=== PATIENT | male | born 1960 | race Caucasian/White ===

== ENCOUNTER 2019-02-18 07:43 | Inpatient (IN) ==
[2019-02-18] MEDS ORDERED: NITROGLYCERIN TOP ONE (07:58)
--- NOTE | 2019-02-18 08:05 | PROVIDER DOCUMENTATION ---
HPI-Chest Pain - General Chief Complaint: Chest Pain Stated Complaint: CHEST PAIN Time Seen by Provider: 02/18/19 07:53 Source: patient, EMS Allergies/Adverse Reactions: Patient Allergies Allergy/AdvReac Type Severity Reaction Status Date / Time Penicillins Allergy Intermediate rash and Verified 02/18/19 12:08 sob levofloxacin [From Levaquin] Allergy Mild rash and Verified 02/18/19 12:08 itching bacitracin [From Polysporin] Allergy RASH Verified 02/18/19 12:08 polymyxin B [From Polysporin] Allergy RASH Verified 02/18/19 12:08 Home Medications: Home Medication List Medication Instructions Recorded Confirmed Last Taken Type Aspirin 325 mg PO DAILY 01/29/13 02/18/19 03/10/17 History LISINOpril [Prinivil] 20 mg PO QHS 01/29/13 02/18/19 03/10/17 History Metoprolol Succinate E.r. [Toprol 50 mg PO DAILY 01/29/13 02/18/19 03/10/17 H istory Xl] Mupirocin Ointment [Bactroban 1 applicatn TOP TID #1 tube 03/11/17 02/18/19 Unknown Rx Ointment] - History of Present Illness-CP Nature of Presenting Problem: Patient reports two episodes of indigestion last night, then one this morning, then an episode of severe substernal chest pressure that felt like his previous NH and associated with shortness of breath and sweating. States nothing exacerbated the indigestion feelings, but that nitro made the pressure feel better. He states that he currently has no symptoms. Denies any other recent chest pain or shortness of breath. Nitro Today/Relief: 0.4 mg x 1 (by ems) Prior Chest Pain/Cardiac Workup: reports: stress test (several years ago) Similar Symptoms Previously?: No Recently Seen Here or By Another Healthcare Provider: No Review of Systems - Adult - REVIEW OF SYSTEMS - ADULT Constitutional: reports: no symptoms reported Eyes: reports: no symptoms reported Ears, Nose, Mouth & Throat: reports: no symptoms reported Cardiovascular: reports: see HPI Respiratory: reports: see HPI Gastrointestinal: reports: see HPI Genitourinary: reports: no symptoms reported Musculoskeletal: reports: no symptoms reported Integumentary: reports: no symptoms reported Neurological: reports: no symptoms reported Psychiatric: reports: no symptoms reported Endocrine: reports: no symptoms reported Hematologic/Lymphatic: reports: no symptoms reported Allergic/Immunologic: reports: no symptoms reported All Other Systems: Reviewed and Negative Past History - Adult - PAST MEDICAL HISTORY-ADULT Review of Records: reports: Old Records Reviewed Cardiovascular: reports: HTN, hyperlipidemia Respiratory: reports: denies history Gastrointestinal: reports: denies history Physical Exam-General - PHYSICAL EXAM-ADULT Initial Vital Signs Reviewed: Yes - CONSTITUTIONAL General Appearance: mild distress, obese, other (diaphoretic) - EYES Eyes: PERRL/EOMI, pink conjunctivae, anisocoria - HEAD, EARS, NOSE, MOUTH & THROAT HENMT: normocephalic/atraumatic, moist mucous membranes - NECK Neck: non-tender, full range of motion, supple - RESPIRATORY Respiratory: chest non-tender, lungs clear - CARDIOVASCULAR Cardiovascular: normal peripheral pulses, regular rate, rhythm, no edema - GASTROINTESTINAL (ABDOMEN) Abdominal Exam: normal bowel sounds, non tender, soft - MUSCULOSKELETAL Back Exam: normal inspection, no CVA tenderness, no vertebral tenderness Extremity: normal range of motion, non-tender, normal inspection - SKIN Integumentary: normal color, normal turgor, diaphoresis - NEUROLOGIC Neurologic: acute coordinator II-XII nml as tested, grossly normal, no motor/sensory deficits - PSYCHIATRIC Psych/Mental Status: normal mood/affect, normal thought content, normal thought process - HEART Score HEART Score: History: Highly Suspicious HEART Score: ECG: Non-Specific Repolarization Disturbance/LBBB/PM HEART Score: Age: 45-65 Years HEART Score: Risk Factors for Atherosclerotic Disease: > or = 3 Risk Factors or History of Atherosclerotic Disease Progress - PLAN OF CARE/RESULTS Progress/Plan/Lab Results: Vital Signs - 8 hr 02/18/19 09:50 Pulse Rate 46 L Respiratory Rate 15 O2 Sat by Pulse Oximetry 98 Laboratory Results - last 24 hr 02/18/19 02/18/19 02/18/19 08:00 08:00 08:00 WBC RBC Hgb Hct MCV MCH MCHC RDW Std Deviation Plt Count MPV Immature Gran % (Auto) Neut % (Auto) Lymph % (Auto) [place] % (Auto) Eos % (Auto) Baso % (Auto) Immature Gran # (Auto) Neut # (Auto) Lymph # (Auto) [place] # (Auto) Eos # (Auto) Baso # (Auto) PT 13.5 INR 0.95 PTT (Actin FS) 29.7 Sodium 142 Potassium 4.4 Chloride 104 Carbon Dioxide 28 Anion Gap 10 BUN 11 Creatinine 1.0 Estimated GFR/1.73 m2 > 60 BUN/Creatinine Ratio 11 Glucose 116 H Calculated Osmolality 283 Calcium 8.8 Total Bilirubin 0.27 AST 14 ALT 13 Alkaline Phosphatase 94 Troponin T Wyp-Z-Xphdtwkvsrm Pept 475 H Total Protein 6.4 Albumin 4.0 Globulin 2.4 Albumin/Globulin Ratio 1.7 Lipase 46 02/18/19 02/18/19 08:00 08:00 WBC 7.08 RBC 4.72 Hgb 13.6 L Hct 41.5 L MCV 87.9 MCH 28.8 MCHC 32.8 L RDW Std Deviation 15.3 H Plt Count 165 MPV 12.0 H Immature Gran % (Auto) 0.4 Neut % (Auto) 68.9 Lymph % (Auto) 18.5 L [place] % (Auto) 7.9 Eos % (Auto) 3.0 Baso % (Auto) 1.3 H Immature Gran # (Auto) 0.03 Neut # (Auto) 4.88 Lymph # (Auto) 1.31 [place] # (Auto) 0.56 Eos # (Auto) 0.21 Baso # (Auto) 0.09 PT INR PTT (Actin FS) Sodium Potassium Chloride Carbon Dioxide Anion Gap BUN Creatinine Estimated GFR/1.73 m2 BUN/Creatinine Ratio Glucose Calculated Osmolality Calcium Total Bilirubin AST ALT Alkaline Phosphatase Troponin T 0.024 Atv-H-Infrnumxzye Pept Total Protein Albumin Globulin Albumin/Globulin Ratio Lipase Orders Category Date Time Status Admit - [facility] Routine AdmDCTranf 02/18/19 09:38 Active Activity - Strict Bedrest ORDERED Care 02/18/19 12:02 Active Nursing- MD Consult Request ROUTINE Care 02/18/19 12:02 Completed Vital Signs Order ARRIVAL TO ROOM Care 02/18/19 12:02 Active Z-Document. for Tele Applied ORDERED Care 02/18/19 12:02 Completed Physician/Provider Consults Routine Cons 02/18/19 12:02 Ordered CHEST-2 VIEWS [RAD] Stat Exams 02/18/19 07:58 Completed CBC WITH ELECTRONIC DIFF [HEME] Stat Lab 02/18/19 08:00 Completed COMPREHENSIVE METABOLIC PANEL [CHEM] Stat Lab 02/18/19 08:00 Completed LIPASE [CHEM] Stat Lab 02/18/19 08:00 Completed PRO B-NATRIURETIC PEPTIDE Stat Lab 02/18/19 08:00 Completed PROTIME WITH INR [COAG] Stat Lab 02/18/19 08:00 Completed PTT [COAG] Stat Lab 02/18/19 08:00 Completed TROPONIN T Q8HR Lab 02/18/19 16:12 Completed TROPONIN T Q8HR Lab 02/18/19 21:00 Ordered TROPONIN T Stat Lab 02/18/19 08:00 Completed Nitroglycerin Med 02/18/19 07:58 Discontinued 1 inch TOP NOW ONE Nitroglycerin Med 02/18/19 12:02 Active 1 inch TOP Q6H PRN PRN Telemetry [OM.EQ] Routine Oth 02/18/19 12:02 Active Transfer/Admit Order [TRANSFER] Routine Transfer 02/18/19 09:39 Completed Result Diagrams: 02/18/19 08:00 02/18/19 08:00 - EKG 1 Time of EKG reading by physician:: 08:00 EKG Interpretation (*Must complete 3 of following elements*): Abnormal Rate: 43 Rhythm: sinus QRS: Q Waves present ST Wave: non-specific ST changes - CONSULTS/PCP/HOSPITALIST Notification #1 *Consult/PCP/Hospitalist*: Dr. Traore Consult Disposition: Admit Departure - Departure Date of Disposition Decision: 02/18/19 Time of Disposition Decision: 09:30 DIAGNOSIS: Chest pain Disposition: ADMITTED INPATIENT 09 Certified Medical Emergency: Emergent Condition: Good - Critical Care Note This patient required my direct & personal management of CC.: No Attestation - Physician/ SHARAN Attestation Patient care was provided by Advanced Practice Provider:: No The physician spent face to face time with patient:: Yes Advanced Practice Provider documentation review:: Supervising physician onsite and consulted in the evaluation and care of this patient. The physician did have a face to face encounter with the patient.
--- NOTE | 2019-02-18 08:19 | Diag Imaging Result Doc PS360 ---
EXAM: CHEST-2 VIEWS 02/18/2019 HISTORY: cp TECHNIQUE: PA and lateral chest COMMENT: There is apparent pleural thickening posteriorly on the right; this was probably present on 07/01/2013 but is not as visible on the previous study. There is borderline cardiomegaly. No focal pulmonary opacity is present. IMPRESSION: Stable chest. Electronically signed by Luiz Zamudio 02/18/2019 8:16 AM
[2019-02-18 08:31] LABS: BASO# 0.09 X1000 (0.0-0.2); BASO% 1.3 % (0.0-0.8); EOS# 0.21 X1000 (0.0-0.7); HEMATOCRIT 41.5 % (42.0-52.0); HEMOGLOBIN 13.6 g/dL (14.0-18.0); IMM GRAN# 0.03 X1000 (0.0-0.04); IMM GRAN% 0.4 % (0.0-0.5); LYMPH# 1.31 X1000 (1.2-3.4); LYMPH% 18.5 % (20.5-51.1); MCH 28.8 PG (27-31); MCHC 32.8 g/dL (33-37); MCV 87.9 FL (81-99); MONO# 0.56 X1000 (0.11-0.59); MONO% 7.9 % (1.7-9.3); NEUT# 4.88 X1000 (1.4-6.5); NEUT% 68.9 % (42.2-75.2); PLT 165 X1000 (130-400); RBC 4.72 XMIL (4.7-6.1); RDW 15.3 % (11.5-14.5); WBC 7.08 X1000 (4.8-10.8)
[2019-02-18 08:36] LABS: INR 0.95; PROTIME 13.5 Seconds (11.0-16.0); PTT 29.7 Seconds (22.3-41.8)
[2019-02-18 08:44] LABS: AGAP 10; ALB/GLOB RATIO 1.7; ALKALINE PHOSPHATASE 94 U/L (32-122); BUN 11 mg/dL (8-22); CALCIUM 8.8 mg/dL (8.8-10.2); CHLORIDE 104 mmol/L (98-107); COSMO 283; ESTIMATED GFR > 60; GLUCOSE 116 mg/dL (70-104); GOT 14 U/L (10-34); GPT 13 U/L (10-44); LIPASE 46 U/L (13-60); POTASSIUM 4.4 mmol/L (3.5-5.1); SODIUM 142 mmol/L (136-145); TCO2 28 mmol/L (25-35); TOTAL BILIRUBIN 0.27 mg/dL (0.20-1.00); TOTAL PROTEIN 6.4 g/dL (6.3-8.3)
[2019-02-18] MEDS ORDERED: NITROGLYCERIN TOP PRN (12:02)
--- NOTE | 2019-02-18 12:30 | EKG Report ---
Test Performed on : 02/18/2019 07:57:02 AM Test Reason : ED. NO EKG ORDER FOR MUSE Blood Pressure : / mmHG Vent. Rate : 043 BPM Atrial Rate : 043 BPM P-R Int : 150 ms QRS Dur : 094 ms QT Int : 474 ms P-R-T Axes : 078 008 067 degrees QTc Int : 400 ms Marked sinus bradycardia. with premature supraventricular complexes. Incomplete right bundle branch block Inferior infarct , age undetermined Cannot rule out Anterior infarct (cited on or before 04-JUL-2010) Abnormal ECG When compared with ECG of 01-JUL-2013 13:16, premature supraventricular complexes. are now present Inferior infarct is now present Unconfirmed Result
[2019-02-18] MEDS ORDERED: HEPARIN 1000 UNITS/NS 2,000 UNIT/1,000 ML IV.SOLN ONE (13:17)
--- NOTE | 2019-02-18 13:53 | CARDIOLOGY CONSULTATION ---
DATE: 02/18/2019 IMPRESSION: 1. Unstable angina. 2. Atherosclerotic coronary disease. A. Status post myocardial infarction in 2009, followed by coronary bypass grafting with left internal mammary artery graft to left anterior descending coronary, saphenous vein graft to the obtuse marginal, and saphenous vein graft to the posterior lateral obtuse marginal. B. Cardiac catheterization, July 2013, noteworthy for mild distal left main coronary stenosis, occluded proximal left anterior descending coronary, dominant left circumflex coronary artery, 3rd obtuse marginal with proximal 80% stenosis, right coronary artery with 100% occlusion at midvessel, patent left internal mammary artery graft to left anterior descending coronary artery, patent saphenous vein graft to first obtuse marginal, and occluded vein graft to posterolateral branch. Left ventricular ejection fraction 55% at that time. 3. Chronic cigarette use. 4. Hypertension. 5. Hyperlipidemia. RECOMMENDATIONS: Favor pursuit of re-evaluation with cardiac catheterization and selective coronary angiography. The rationale for this approach, along with potential hazards, was discussed with the patient as well as the potential need for him to transfer to [facility] in the event he needs percutaneous coronary intervention. He acknowledged these and wished to proceed. HISTORY: This 58-year-old white male with past history of atherosclerotic coronary disease, previous coronary bypass surgery, hypertension, hyperlipidemia, and chronic cigarette use was admitted to the emergency room this morning with recurrent chest pain. He relates a 1-week history of recurrent episodes of substernal chest tightness. As he describes his chest discomfort, he gestures with Saucedo's sign. Discomfort has occurred spontaneously but has also been provoked by physical activity. Episodes have generally been brief, lasting just a couple minutes at a time and resolving with rest. He had another episode early this morning while in bed, which prompted him to come to the emergency room. His discomfort resolved spontaneously. He has history of chronic cigarette use and is trying to cut back. He is currently smoking one-half pack of cigarettes per day. He has some tendency for bilateral burning lower extremity discomfort with physical activity. PAST MEDICAL HISTORY: 1. Atherosclerotic coronary artery disease. 2. Hypertension. 3. Hyperlipidemia. PAST SURGICAL HISTORY: Includes: 1. Coronary artery bypass grafting in 2009. 2. Cholecystectomy about 5 years ago. 3. History of gastroesophageal reflux disease and associated esophagitis. ALLERGIES: He is allergic or intolerant to penicillin, levofloxacin, bacitracin, and polymyxin B. MEDICATIONS PRIOR TO ADMISSION: As listed. SOCIAL HISTORY: He smokes a half-pack of cigarettes per day. He does not use alcohol. FAMILY HISTORY: Positive for coronary disease. REVIEW OF SYSTEMS: Pulmonary: Negative. Gastrointestinal: Negative. Constitutional: Negative. Remainder of review of systems negative/noncontributory with 14 total systems reviewed. PHYSICAL EXAMINATION: This is an obese middle-aged white male in no distress. Blood pressure 157/65, heart rate 43, oxygen saturation 100% on nasal cannula oxygen.HEENT: Extraocular muscles appear intact. Mucous membranes are moist. Neck is supple without jugular venous distention. There are no carotid bruits. Chest is clear to auscultation bilaterally. Cardiac exam reveals a regular rate and rhythm without appreciable murmur or gallop. Abdomen is soft. Bowel sounds are normal. Extremities are without edema. Dorsalis pedis pulses are palpable bilaterally. PERTINENT DATA: A 12-lead EKG demonstrates sinus bradycardia, incomplete right bundle branch block, and possible inferior infarct of undetermined age. LABORATORY DATA: Includes a white blood cell count of 7.08, hematocrit 41.5, hemoglobin 13.6, platelet count 165,000. Pro-time 13.5, INR 0.95, PTT 29.7. Sodium 142, potassium 4.4, chloride 104, carbon dioxide 28, BUN 11, creatinine 1.0, glucose 116. Troponin T 0.024. cc: MD Crispin Gomes MD
[2019-02-18] MEDS ORDERED: CLAVE TWINSITE 32 IN 11959 ONE (14:00)
[2019-02-18] MEDS ORDERED: NS 1,000 ML ONE (14:00)
[2019-02-18] MEDS ORDERED: ANESTHESIA PB SET 88 IN 5742 ONE (14:00)
[2019-02-18] MEDS ORDERED: VERSED ONE (14:08)
[2019-02-18] MEDS ORDERED: MORPHINE ONE (14:08)
--- NOTE | 2019-02-18 15:44 | EKG Report ---
Test Performed on : 02/18/2019 3:36:01 PM Test Reason : post cath Blood Pressure : / mmHG Vent. Rate : 043 BPM Atrial Rate : 043 BPM P-R Int : 158 ms QRS Dur : 098 ms QT Int : 470 ms P-R-T Axes : 062 035 062 degrees QTc Int : 397 ms Marked sinus bradycardia. with premature atrial complexes. Incomplete right bundle branch block Nonspecific T wave abnormality Abnormal ECG When compared with ECG of 18-FEB-2019 07:57, (Unconfirmed) Criteria for Inferior infarct are no longer present Confirmed by Leyla FREEMAN, Gregg Martino ([id number]) on 02/20/2019 11:59:13 AM
--- NOTE | 2019-02-18 16:26 | CARDIAC CATH REPORT ---
PROCEDURE NAME: - PROCEDURE PERFORMED: Left heart catheterization with selective coronary angiography, left internal mammary artery graft angiography, saphenous vein graft angiography, and left ventriculography. INDICATIONS: Unstable angina in a patient with history of previous coronary bypass grafting in 2009. ENTRY SITE: Right femoral artery. CATHETERS USED: 5-Citizen [place] JL4, JR4, JOSIAH, and angled pigtail. TECHNIQUE: After intravenous sedation with morphine and Versed, local anesthesia with lidocaine was applied over right femoral artery. Arterial access was established with placement of a 5- [place] sheath in right femoral artery using modified Seldinger technique. Selective coronary angiography was subsequently performed. Angiography of saphenous vein graft was performed, followed by angiography of left internal mammary artery graft. Thereafter, left heart catheterization and left ventriculography were performed. Upon completion of procedure, arterial sheath was removed from right femoral artery and hemostasis facilitated with manual pressure. The patient tolerated the procedure without apparent complications. FINDINGS: Hemodynamics: Aortic pressure 162/71 with a mean 103. Left ventricular pressure 166 over EDP of 21. Comments on hemodynamics: There is no significant gradient across the aortic valve demonstrated on pullback from left ventricle. ANGIOGRAPHY: 1. Left ventriculogram. The left ventricle is upper normal in size. Estimated left ejection fraction approximately 50%. There is no significant mitral regurgitation. 2. Left main coronary. Left main coronary artery demonstrates mild (30%) distal narrowing. 3. Left anterior descending coronary. Left anterior descending coronary is occluded at its ostium. 4. Left circumflex coronary. The left circumflex coronary artery is a dominant vessel. There is a severe (80%) stenosis at midvessel and left circumflex coronary. Obtuse marginal is occluded at its ostium. The distal left circumflex coronary transitions to a posterior lateral branch. In transitioning to posterior lateral branch there is an acute bend in the vessel. Within this bend is a moderate (50%) focal stenosis. The proximal region of the posterior lateral branch demonstrates a severe (90%) focal stenosis. The mid to distal portion of the posterior lateral branch demonstrates a severe (80%) focal stenosis. 5. Right coronary artery. The right coronary artery is a small vessel and demonstrates severe diffuse coronary atherosclerosis. 6. Left internal mammary artery graft to left anterior descending coronary artery. This graft is widely patent. The left anterior descending coronary artery demonstrates significant diffuse coronary atherosclerosis. 7. Saphenous vein graft to obtuse marginal. This graft is patent. The obtuse marginal is a branch vessel that demonstrates significant diffuse coronary atherosclerosis. 8. Saphenous vein graft to posterior lateral branch. This graft was not selectively engaged as it was known to be occluded on previous study. CONCLUSIONS: 1. Mildly reduced left ventricular systolic function. 2. Severe 3 vessel coronary atherosclerosis as described. 3. Patent left internal mammary artery graft to left anterior descending coronary which demonstrates significant diffuse atherosclerosis. 4. Patent saphenous vein graft to branched obtuse marginal which also demonstrates significant diffuse atherosclerosis. 5. Occluded saphenous vein graft to posterior lateral branch not selectively engaged as it was known to be occluded on previous study. RECOMMENDATIONS: 1. Palliative angioplasty/stenting of distal left circumflex coronary and mid left circumflex coronary to be considered, if feasible. manager commercial sales to be consulted. 2. Additionally, patient needs aggressive coronary risk factor modification including smoking cessation and statin therapy. cc: MD Crispin Gomes MD
[2019-02-18 16:47] LABS: CHOLESTEROL 176 mg/dL (0-200); HDL 27 mg/dL (35-55); LDL 105 mg/dL; TRIGLYCERIDES 221 mg/dL (39-160); VLDL 44 mg/dL
--- NOTE | 2019-02-18 19:12 | HISTORY AND PHYSICAL ---
CHIEF COMPLAINT: Chest pain. HISTORY OF PRESENT ILLNESS: The patient is a 58-year-old white male followed by my medical practice. He has a long history of noncompliance. I have not seen him in quite some time. He has missed a couple of appointments in the last 6-9 months. He has a long history of coronary artery disease consisting of PTCA back in 1997, and then underwent CABG in the more recent past. He comes in with about a week history of 4 episodes of anterior chest pain he describes as a pressure-like sensation associated with shortness of breath and diaphoresis. Two of these episodes occurred with some activity, while 2 occurred more with rest. They lasted 2-5 minutes each time, and this morning he called the ambulance for evaluation. He does note that nitroglycerin seemed to help his symptoms when he got to the ER. MEDICATIONS PRIOR TO ADMISSION: 1. Aspirin 325 mg p.o. daily. 2. Toprol XL 50 mg p.o. daily. 3. Lisinopril 20 mg p.o. daily. ALLERGIES: Penicillin, Levaquin, bacitracin, polymyxin-B. PAST MEDICAL HISTORY: 1. Hypertension diagnosed in 1993. 2. Gout diagnosed in 1993. 3. Hypercholesterolemia diagnosed in May 2000. 4. History of right undescended testicle and surgery for that back in 1962. 5. Coronary artery disease diagnosed in 1997 with PTCA performed at that time. 6. Cholelithiasis diagnosed in January 2013, now status post laparoscopic cholecystectomy in February 2013. 7. Fatty liver diagnosed in January 2013. 8. Obesity. 9. Persistent tobacco abuse. PAST SURGICAL HISTORY: 1. Right inguinal hernia repair and undescended testicle surgery done in 1962. 2. CABG. 3. Laparoscopic cholecystectomy in February 2013. IMMUNIZATIONS: He has not had any immunizations. FAMILY HISTORY: Notable for hypertension in his mother and father. No strokes in the family. Brain aneurysm in his mother. Grandfather and uncle with MIs. Aunt with lupus. Diabetes mellitus in his father. Lung cancer in his father, who was a smoker. SOCIAL HISTORY: The patient lives in [place], [place]. He is . He has 1 child and 1 stepson. He is on disability. 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 Says he has cut down to smoking about three-quarters of a pack of cigarettes a day. In the past it got up as high as a pack and a half per day, and he has a 35-year history of smoking. Drinks a 12-pack of beer per week, by his report. REVIEW OF SYSTEMS: Notable only for some possible black bowel movements over the past month after admitting to taking some ibuprofen 600 mg on occasion for some tooth problems he was having, and he has had that tooth pulled in the interim. He denies Pepto-Bismol usage. PHYSICAL EXAMINATION: VITAL SIGNS: See chart. GENERAL: Moderately obese white male just status post heart cath per Dr. Horne. SKIN: No major rashes. HEENT: Normocephalic, atraumatic. PERRL. EOMI. Sclerae clear. Oropharynx: No redness. Tongue in the midline. NECK: No LA, TMG, JVD or bruits. CV: Regular rate and rhythm, no murmur. LUNGS: Distant breath sounds. Clear to auscultation. ABDOMEN: Protuberant, soft, nontender, nondistended. No mass. No HSM. /RECTAL: Deferred. EXTREMITIES: No clubbing, cyanosis, or edema. Peripheral pulses 1+/4 bilaterally. NEUROLOGIC: Cranial nerves II-XII are intact. Nonfocal. DIAGNOSTIC DATA: EKG shows sinus bradycardia, incomplete right bundle branch block, probable inferior scar, possible anterior scar as well. Nonspecific ST changes, diffuse. LABORATORY DATA: White count 7.08, hemoglobin 13.6, hematocrit 41.5, MCV 87.9, platelets 165, neutrophils 68%, lymphocytes 18%, monocytes 7.9%. PT 13.5, INR 0.95, PTT 29.7. Sodium 142, potassium 4.4, chloride 104. CO2 is 28, BUN 11, creatinine 1.0, glucose 116, calcium 8.8. Total bilirubin 0.27, AST 14, ALT 13, alkaline phosphatase 94. Troponin 0.024 and 0.018 respectively. ProBNP 475. Total protein 6.4, albumin 4.0. Lipase 46. Total cholesterol 176, triglycerides 221, LDL 105, VLDL 44, HDL 27. ASSESSMENT: 1. Chest pain with angina and coronary artery disease. 2. History of coronary artery disease with prior coronary artery bypass grafting. 3. Hypertension. 4. Hypercholesterolemia. 5. Persistent tobacco abuse. 6. Noncompliance with followup visits. 7. Gout off and on, active, now off his allopurinol. 8. Possible melena after nonsteroidal antiinflammatory use. PLAN: Dr. Horne has performed heart catheterization with results reviewed, and at this time the patient is awaiting evaluation by hospital receiving clerk for possible transfer for stent placement. He has been placed on Lipitor [address] Horne. He is on nitroglycerin paste in addition to low-dose Toprol XL. His lisinopril is being held. He is on Ranexa per Dr. Horne. The patient will be placed on Protonix orally, and will check his stools for occult blood. Maintain him on a healthy-heart diet. Check A1c as well. He will continue on his aspirin daily as well. cc: Crispin Traore MD
[2019-02-18] MEDS ORDERED: LIPITOR PO SCH (21:00)
[2019-02-18] MEDS ORDERED: RANEXA PO SCH (21:00)
[2019-02-19 06:08] LABS: HEMOGLOBIN A1C 5.1 % (4.8-6.0)
[2019-02-19 06:42] VITALS: BP 176/77
[2019-02-19] MEDS ORDERED: PROTONIX PO SCH (07:00)
[2019-02-19] MEDS ORDERED: ASPIRIN PO SCH (09:00)
[2019-02-19] MEDS ORDERED: TOPROL XL PO SCH (09:00)
== END 2019-02-19 07:30 | disposition short-term general hospital (02) | DRG 287 ==
LOC: SUPCPDRO → ED 07:43 → 4N 09:56 → 3S 15:16
PROVIDERS: ADMIT Family Medicine; ATTEND Family Medicine
CPT/HCPCS: 71020; 71046; 80053; 80061; 82565; 83036; 83690; 83735; 83880; 84484; 85025; 85610; 85730; 93005; 93010; 93459; 94761; 99285; A9270; J1644; J2250; J2270; J7030; Q9967